=== PATIENT | male | born 1940 | race Caucasian/White ===

== ENCOUNTER 2019-05-27 18:02 | Inpatient (IN) ==
[2019-05-27] MEDS ORDERED: SODIUM CHLORIDE 0.9% 1,000 ML IV STA ×2 (18:36→21:39)
[2019-05-27] MEDS ORDERED: KETOROLAC 30 MG/1 ML VIAL IV STA (18:36)
[2019-05-27] MEDS ORDERED: ONDANSETRON 4 MG/2 ML VIAL IV STA (18:36)
[2019-05-27] MEDS ORDERED: LOPERAMIDE 2 MG CAPSULE PO STA (18:36)
[2019-05-27] MEDS ORDERED: METOCLOPRAMIDE 10 MG/2 ML VIAL IV STA (18:43)
[2019-05-27] MEDS ORDERED: DICYCLOMINE 20 MG/2 ML AMP IM ONE (18:43)
[2019-05-27] MEDS ORDERED: PANTOPRAZOLE 40 MG VIAL IV STA (18:43)
[2019-05-27] MEDS ORDERED: ALBUTEROL/IPRATROPIUM 3 ML NEB RESP TX STA (19:41)
[2019-05-27 19:43] LABS: Basophils % 0.3 % (0.0-0.8); Hematocrit 33.3 VOL% (42.0-52.0); Hemoglobin 10.6 GM/DL (14.0-18.0); Immature Granulocytes % 0.5 %; Immature Granulocytes Absolute 0.03 #; Lymphocytes # 0.3 10*3/uL (1.4-4.0); Lymphocytes % 4.5 % (21.2-54.2); Mean Corpuscular HGB Conc 31.8 GM/DL (32-36); Mean Corpuscular Volume 86.3 FL (87-102); Mean Platelet Volume 7.9 FL (9.6-12.0); Monocytes % 3.4 % (1.7-12.7); Neutrophils % 91.3 % (38.7-73.9); Platelet Count 319 T/CUMM (130-400); Red Blood Count 3.86 MC/CUMM (3.8-5.5); Red Cell Distribution Width 14.4 % (9.3-17.3); White Blood Count 5.8 T/CUMM (4-12)
[2019-05-27 20:03] LABS: Alanine Aminotransferase 14 U/L (16-61); Alkaline Phosphatase 67 U/L (45-117); Amylase 29 U/L (25-115); Aspartate Amino Transferase 20 U/L (0-37); Blood Urea Nitrogen 43 MG/DL (7-18); CKMB % 4.2 %; Estimated Glom Filtration Rate 61 ML/MIN; Glucose 90 MG/DL (74-106); Osmolality,Calculated 283.8 MOS/KG (273-304); Total Protein 5.6 G/DL (6.4-8.3); Troponin I < 0.015 NG/ML (0.00-0.045)
[2019-05-27 20:06] LABS: Band Neutrophils 1 % (0-10); Lymphocytes 4 % (20-55); Platelet Estimate Normal; Segmented Neutrophils 92 % (50-85); Total Cells Counted 100
[2019-05-27 20:07] LABS: Anisocytosis Slight; Hypochromasia Slight; Microcytosis Slight; Tear Drop Cells Slight
[2019-05-27] MEDS ORDERED: methylPREDNISolone SOD SUC 125 MG/2 ML VIAL IV STA (20:15)
[2019-05-27] MEDS ORDERED: cefTRIAXone 1,000 MG in SODIUM CHLORIDE 0.9% 100 ML IV STA (20:15)
[2019-05-27] MEDS ORDERED: AZITHROMYCIN INJ 500 MG in SODIUM CHLORIDE 0.9% 250 ML IV STA (20:15)
[2019-05-27 21:29] LABS: Apearance,Urine CLEAR (Clear); Bacteria,Urine Occasional /HPF (Few); Bilirubin,Urine Negative (Negative); Blood, Urine Negative (Negative); Glucose,Urine (UA) Negative (Negative); Ketones,Urine Negative (Negative); Mucus,Urine Occasional /LPF (Occasional); Nitrite,Urine Negative (Negative); Protein,Urine Negative; RBC,Urine <1 /HPF (0-4); Urine Color Yellow (Yellow); Urine Specific Gravity 1.025 (1.001-1.035); Urine Urobilinogen < 2.0 EU/DL (0.2-1.0)
[2019-05-28] MEDS ORDERED: ONDANSETRON 4 MG/2 ML VIAL IV PRN (00:02)
[2019-05-28] MEDS ORDERED: ALBUTEROL 1.25 MG/3 ML NEB RESP TX PRN (00:02)
[2019-05-28] MEDS ORDERED: ACETAMINOPHEN 325 MG TABLET PO PRN (00:02)
[2019-05-28] MEDS: SODIUM CHLORIDE 0.9% 1,000 ML IV SCH ×2 (00:45→08:38)
[2019-05-28 04:54] LABS: Basophils % 0.3 % (0.0-0.8); Hematocrit 27.6 VOL% (42.0-52.0); Hemoglobin 8.7 GM/DL (14.0-18.0); Immature Granulocytes % 0.5 %; Immature Granulocytes Absolute 0.04 #; Lymphocytes # 0.3 10*3/uL (1.4-4.0); Mean Corpuscular HGB Conc 31.5 GM/DL (32-36); Mean Corpuscular Volume 84.9 FL (87-102); Mean Platelet Volume 8.2 FL (9.6-12.0); Monocytes % 2.6 % (1.7-12.7); Neutrophils % 92.6 % (38.7-73.9); Platelet Count 284 T/CUMM (130-400); Red Blood Count 3.25 MC/CUMM (3.8-5.5); Red Cell Distribution Width 14.3 % (9.3-17.3); White Blood Count 7.3 T/CUMM (4-12)
[2019-05-28 05:14] LABS: Calcium 7.6 MG/DL (8.5-10.1); Osmolality,Calculated 284.7 MOS/KG (273-304)
[2019-05-28 05:22] LABS: Band Neutrophils 17 % (0-10); Hypochromasia Slight; Lymphocytes 4 % (20-55); Ovalocytes Slight; Platelet Estimate Adequate; Segmented Neutrophils 76 % (50-85); Total Cells Counted 100
[2019-05-28 05:23] LABS: Microcytosis Slight
[2019-05-28 05:26] LABS: Thyroid Stimulating Hormone 1.03 uIU/ml (0.358-3.74)
[2019-05-28] MEDS: MIDODRINE 5 MG TABLET PO SCH ×4 (08:34→20:22)
[2019-05-28] MEDS: PRAMIPEXOLE 1 MG TABLET PO SCH ×4 (08:34→20:22)
[2019-05-28] MEDS ORDERED: PANTOPRAZOLE 40 MG TABLET PO SCH (09:00)
[2019-05-28] MEDS: PANTOPRAZOLE 40 MG VIAL IV SCH (20:22)
[2019-05-28] MEDS: cefTRIAXone 1,000 MG in SYRINGE 1 EACH IV SCH (20:24)
[2019-05-28] MEDS: AZITHROMYCIN INJ 500 MG in SODIUM CHLORIDE 0.9% 250 ML IV SCH (20:30)
[2019-05-29] MEDS: ALBUTEROL 1.25 MG/3 ML NEB RESP TX SCH ×4 (00:22→19:56)
[2019-05-29 04:55] LABS: Hematocrit 26.9 VOL% (42.0-52.0); Hemoglobin 8.4 GM/DL (14.0-18.0); Immature Granulocytes % 0.8 %; Immature Granulocytes Absolute 0.05 #; Lymphocytes # 0.4 10*3/uL (1.4-4.0); Lymphocytes % 5.7 % (21.2-54.2); Mean Corpuscular HGB Conc 31.2 GM/DL (32-36); Mean Corpuscular Volume 85.4 FL (87-102); Mean Platelet Volume 8.2 FL (9.6-12.0); Monocytes % 5.3 % (1.7-12.7); Neutrophils % 88.2 % (38.7-73.9); Platelet Count 311 T/CUMM (130-400); Red Blood Count 3.15 MC/CUMM (3.8-5.5); Red Cell Distribution Width 14.8 % (9.3-17.3); White Blood Count 6.6 T/CUMM (4-12)
[2019-05-29 05:18] LABS: Band Neutrophils 3 % (0-10); Burr Cells Slight; Hypochromasia 1+; Lymphocytes 7 % (20-55); Microcytosis Slight; Ovalocytes Slight; Platelet Estimate Adequate; Segmented Neutrophils 89 % (50-85); Total Cells Counted 100
[2019-05-29 05:28] LABS: Calcium 7.8 MG/DL (8.5-10.1); Osmolality,Calculated 291.1 MOS/KG (273-304)
[2019-05-29] MEDS: PRAMIPEXOLE 1 MG TABLET PO SCH ×3 (09:38→20:23)
[2019-05-29] MEDS: MIDODRINE 5 MG TABLET PO SCH ×3 (09:38→20:23)
[2019-05-29] MEDS: PANTOPRAZOLE 40 MG VIAL IV SCH ×2 (09:40→20:19)
[2019-05-29] MEDS: POLYETHYLENE GLYCOL POWDER 17 GM PACK PO SCH ×2 (10:12→20:24)
[2019-05-29 10:42] LABS: % Iron Saturation 7.7 % (18-50)
[2019-05-29] MEDS: cefTRIAXone 1,000 MG in SYRINGE 1 EACH IV SCH (20:21)
[2019-05-29] MEDS: AZITHROMYCIN INJ 500 MG in SODIUM CHLORIDE 0.9% 250 ML IV SCH (20:24)
[2019-05-30] MEDS: ALBUTEROL 1.25 MG/3 ML NEB RESP TX SCH ×4 (00:55→20:06)
[2019-05-30 05:48] LABS: Basophils % 0.2 % (0.0-0.8); Eosinophils % 0.5 % (0.00-10.9); Hematocrit 25.5 VOL% (42.0-52.0); Immature Granulocytes % 0.7 %; Immature Granulocytes Absolute 0.04 #; Lymphocytes # 0.6 10*3/uL (1.4-4.0); Lymphocytes % 10.5 % (21.2-54.2); Mean Corpuscular HGB Conc 31.4 GM/DL (32-36); Mean Corpuscular Volume 84.7 FL (87-102); Monocytes % 7.3 % (1.7-12.7); Neutrophils % 80.8 % (38.7-73.9); Platelet Count 303 T/CUMM (130-400); Red Blood Count 3.01 MC/CUMM (3.8-5.5); Red Cell Distribution Width 14.8 % (9.3-17.3); White Blood Count 5.6 T/CUMM (4-12)
[2019-05-30 06:09] LABS: Band Neutrophils 1 % (0-10); Eosinophils 1 % (0-10); Hypochromasia 1+; Lymphocytes 7 % (20-55); Platelet Estimate Adequate; Segmented Neutrophils 86 % (50-85); Total Cells Counted 100
[2019-05-30 06:10] LABS: Microcytosis Slight
[2019-05-30] MEDS: LACTATED RINGERS 1,000 ML IV SCH (07:15)
[2019-05-30] MEDS ORDERED: ETOMIDATE 20 MG/10 ML VIAL IV ONE (09:00)
[2019-05-30] MEDS ORDERED: LIDOCAINE 2% 5 ML VIAL ONE (09:00)
[2019-05-30] MEDS ORDERED: propofoL 200 MG/20 ML VIAL IV ONE (09:00)
[2019-05-30] MEDS: PANTOPRAZOLE 40 MG VIAL IV SCH ×2 (09:12→20:53)
[2019-05-30] MEDS: PRAMIPEXOLE 1 MG TABLET PO SCH ×3 (10:43→20:40)
[2019-05-30] MEDS: POLYETHYLENE GLYCOL POWDER 17 GM PACK PO SCH ×2 (10:43→20:40)
[2019-05-30] MEDS: MIDODRINE 5 MG TABLET PO SCH ×3 (10:43→20:40)
[2019-05-30] MEDS: cefTRIAXone 1,000 MG in SYRINGE 1 EACH IV SCH (20:39)
[2019-05-31] MEDS: ALBUTEROL 1.25 MG/3 ML NEB RESP TX SCH ×4 (01:32→19:44)
[2019-05-31] MEDS: PRAMIPEXOLE 1 MG TABLET PO SCH ×3 (10:53→21:04)
[2019-05-31] MEDS: MIDODRINE 5 MG TABLET PO SCH ×3 (10:54→21:04)
[2019-05-31] MEDS: POLYETHYLENE GLYCOL POWDER 17 GM PACK PO SCH ×2 (10:54→21:05)
[2019-05-31] MEDS: PANTOPRAZOLE 40 MG VIAL IV SCH (10:54)
[2019-05-31] MEDS: AZITHROMYCIN 40 MG/ML 15 ML/BOTTLE PO SCH (15:40)
[2019-05-31] MEDS: PANTOPRAZOLE 40 MG TABLET PO SCH (18:15)
[2019-05-31] MEDS: cefTRIAXone 1,000 MG in SYRINGE 1 EACH IV SCH (21:03)
[2019-05-31] MEDS: LACTATED RINGERS 1,000 ML IV SCH (21:05)
[2019-06-01] MEDS: ALBUTEROL 1.25 MG/3 ML NEB RESP TX SCH ×4 (01:30→19:38)
[2019-06-01] MEDS: POLYETHYLENE GLYCOL POWDER 17 GM PACK PO SCH ×2 (09:56→21:25)
[2019-06-01] MEDS: AZITHROMYCIN 40 MG/ML 15 ML/BOTTLE PO SCH (09:56)
[2019-06-01] MEDS: MIDODRINE 5 MG TABLET PO SCH ×3 (09:57→21:25)
[2019-06-01] MEDS: PANTOPRAZOLE 40 MG TABLET PO SCH ×2 (09:58→18:47)
[2019-06-01] MEDS: PRAMIPEXOLE 1 MG TABLET PO SCH ×3 (09:58→21:25)
[2019-06-01 10:38] LABS: Basophils % 0.3 % (0.0-0.8); Eosinophils # 0.1 10*3/uL (0.0-0.87); Eosinophils % 1.6 % (0.00-10.9); Hematocrit 27.7 VOL% (42.0-52.0); Hemoglobin 8.8 GM/DL (14.0-18.0); Immature Granulocytes % 1.2 %; Immature Granulocytes Absolute 0.08 #; Lymphocytes # 0.6 10*3/uL (1.4-4.0); Lymphocytes % 9.8 % (21.2-54.2); Mean Corpuscular HGB Conc 31.8 GM/DL (32-36); Mean Corpuscular Volume 84.5 FL (87-102); Mean Platelet Volume 8.2 FL (9.6-12.0); Monocytes % 9.3 % (1.7-12.7); Neutrophils % 77.8 % (38.7-73.9); Platelet Count 271 T/CUMM (130-400); Red Blood Count 3.28 MC/CUMM (3.8-5.5); Red Cell Distribution Width 14.7 % (9.3-17.3); White Blood Count 6.4 T/CUMM (4-12)
[2019-06-01 10:59] LABS: Atypical Lymphocytes Few; Band Neutrophils 2 % (0-10); Eosinophils 3 % (0-10); Hypochromasia 1+; Lymphocytes 8 % (20-55); Segmented Neutrophils 76 % (50-85); Total Cells Counted 100
[2019-06-01 11:00] LABS: Microcytosis Slight; Ovalocytes Slight; Polychromasia Slight
[2019-06-01] MEDS: LACTATED RINGERS 1,000 ML IV SCH (19:43)
[2019-06-01] MEDS: cefTRIAXone 1,000 MG in SYRINGE 1 EACH IV SCH (21:24)
[2019-06-02] MEDS: ALBUTEROL 1.25 MG/3 ML NEB RESP TX SCH ×4 (00:39→20:20)
[2019-06-02] MEDS: LACTATED RINGERS 1,000 ML IV SCH (09:16)
[2019-06-02] MEDS: PANTOPRAZOLE 40 MG TABLET PO SCH ×2 (15:25→21:29)
[2019-06-02] MEDS: PRAMIPEXOLE 1 MG TABLET PO SCH ×3 (15:25→21:24)
[2019-06-02] MEDS: POLYETHYLENE GLYCOL POWDER 17 GM PACK PO SCH ×2 (15:25→22:55)
[2019-06-02] MEDS: MIDODRINE 5 MG TABLET PO SCH ×3 (15:31→21:25)
[2019-06-02] MEDS: AZITHROMYCIN 40 MG/ML 15 ML/BOTTLE PO SCH (15:36)
[2019-06-02] MEDS: cefTRIAXone 1,000 MG in SYRINGE 1 EACH IV SCH (21:23)
[2019-06-03] MEDS: ALBUTEROL 1.25 MG/3 ML NEB RESP TX SCH ×2 (00:57→07:22)
[2019-06-03 05:50] LABS: Calcium 7.9 MG/DL (8.5-10.1); Osmolality,Calculated 272.8 MOS/KG (273-304)
[2019-06-03] MEDS: PANTOPRAZOLE 40 MG TABLET PO SCH (10:13)
[2019-06-03] MEDS: PRAMIPEXOLE 1 MG TABLET PO SCH (10:13)
[2019-06-03] MEDS: MIDODRINE 5 MG TABLET PO SCH (10:13)
[2019-06-03] MEDS: POLYETHYLENE GLYCOL POWDER 17 GM PACK PO SCH (10:14)
[2019-06-03] MEDS: AZITHROMYCIN 40 MG/ML 15 ML/BOTTLE PO SCH (13:38)
[2019-06-03 20:50] VITALS: BP 114/70
[2019-06-04] MEDS ORDERED: FLUCONAZOLE 100 MG TABLET PO SCH (09:00)
== END 2019-06-03 14:40 | disposition home or self-care (01) | DRG 177 ==
LOC: N.ED 18:02 → N.EDINP 23:22 → SUATTDRO 23:22 → N.EDINP 05-28 00:19 → N.5E 05-28 00:20
PROVIDERS: ADMIT Internal Medicine; ATTEND Emergency Medicine

== ENCOUNTER 2020-06-21 09:29 | Inpatient (IN) ==
[2020-06-22 00:13] LABS: Basophils % 0.7 % (0.0-0.8); Eosinophils # 0.1 10*3/uL (0.0-0.87); Eosinophils % 1.4 % (0.00-10.9); Hematocrit 36.4 VOL% (42.0-52.0); Hemoglobin 11.4 GM/DL (14.0-18.0); Immature Granulocytes % 0.5 %; Immature Granulocytes Absolute 0.03 #; Lymphocytes # 0.4 10*3/uL (1.4-4.0); Lymphocytes % 7.2 % (21.2-54.2); Mean Corpuscular HGB Conc 31.3 GM/DL (32-36); Mean Corpuscular Volume 91.2 FL (87-102); Mean Platelet Volume 9.3 FL (9.6-12.0); Monocytes % 8.7 % (1.7-12.7); Neutrophils % 81.5 % (38.7-73.9); Platelet Count 216 T/CUMM (130-400); Red Blood Count 3.99 MC/CUMM (3.8-5.5); Red Cell Distribution Width 16.7 % (9.3-17.3); White Blood Count 5.5 T/CUMM (4-12)
[2020-06-22 00:21] LABS: Partial Thromboplastin Time 32.2 SECS (23.9-33.8)
[2020-06-22 00:28] LABS: Allen Test Positive; Pt O2 Delivery Device CPAP
[2020-06-22 00:30] LABS: ABG Base Excess 1.5 MMOL/L (-2.5-2.5); ABG HCO3 25.7 MMOL/L (20-26); ABG PCO2 54.1 MM HG (35-48); ABG PH 7.331 (7.35-7.45); ABG TCO2 25.3 MMOL/L (23-27)
[2020-06-22] MEDS ORDERED: ALBUTEROL/IPRATROPIUM 3 ML NEB RESP TX PRN (00:47)
[2020-06-22] MEDS ORDERED: ACETAMINOPHEN 325 MG TABLET PO PRN (00:51)
[2020-06-22] MEDS ORDERED: ALBUTEROL 2.5 MG/3 ML NEB RESP TX PRN (00:51)
[2020-06-22 01:25] LABS: Alanine Aminotransferase < 9 U/L (16-61); Alkaline Phosphatase 84 U/L (45-117); Aspartate Amino Transferase 19 U/L (0-37); Blood Urea Nitrogen 16 MG/DL (7-18); Calcium 8.7 MG/DL (8.5-10.1); Carbon Dioxide 25 MMOL/L (21-32); Estimated Glom Filtration Rate 77 ML/MIN; Glucose 68 MG/DL (74-106); Osmolality,Calculated 284.8 MOS/KG (273-304); Potassium 3.8 MMOL/L (3.5-5.1); Sodium 144 MMOL/L (136-145)
[2020-06-22] MEDS: cefTRIAXone 1,000 MG in SYRINGE 1 EACH IV SCH (01:48)
[2020-06-22] MEDS: SODIUM CHLORIDE 0.45% 1,000 ML IV SCH ×2 (01:48→17:33)
[2020-06-22] MEDS: AZITHROMYCIN INJ 500 MG in SODIUM CHLORIDE 0.9% 250 ML IV SCH (01:49)
[2020-06-22] MEDS: methylPREDNISolone SOD SUC 40 MG/1 ML VIAL IV SCH ×3 (01:52→17:33)
[2020-06-22] MEDS: ALBUTEROL/IPRATROPIUM 3 ML NEB RESP TX SCH ×5 (02:07→19:46)
[2020-06-22 02:35] LABS: Bilirubin,Urine Negative (Negative); Blood, Urine Moderate mg/dL (Negative); Glucose,Urine (UA) Negative (Negative); Hyaline Casts,Urine 9 /LPF (0-3); Ketones,Urine 5 mg/dL (Negative); Mucus,Urine Occasional /LPF (Occasional); Nitrite,Urine Negative (Negative); Protein,Urine Negative; RBC,Urine 18 /HPF (0-4); Urine Appearance CLEAR (Clear); Urine Color Yellow (Yellow); Urine Specific Gravity 1.011 (1.001-1.035); Urine Urobilinogen < 2.0 EU/DL (0.2-1.0)
[2020-06-22 04:06] LABS: ABG Base Excess -0.1 MMOL/L (-2.5-2.5); ABG HCO3 24.3 MMOL/L (20-26); ABG Oxygen Saturation 97.4 % (95-100); ABG PCO2 57.4 MM HG (35-48); ABG PH 7.289 (7.35-7.45); ABG TCO2 25.2 MMOL/L (23-27); Allen Test Positive; Pt O2 Delivery Device CPAP
[2020-06-22 04:48] LABS: Basophils % 0.6 % (0.0-0.8); Eosinophils % 0.6 % (0.00-10.9); Hematocrit 37.3 VOL% (42.0-52.0); Hemoglobin 11.2 GM/DL (14.0-18.0); Immature Granulocytes % 0.7 %; Immature Granulocytes Absolute 0.05 #; Lymphocytes # 0.3 10*3/uL (1.4-4.0); Lymphocytes % 4.3 % (21.2-54.2); Mean Corpuscular Volume 94.2 FL (87-102); Mean Platelet Volume 9.4 FL (9.6-12.0); Monocytes % 6.1 % (1.7-12.7); Neutrophils % 87.7 % (38.7-73.9); Platelet Count 236 T/CUMM (130-400); Red Blood Count 3.96 MC/CUMM (3.8-5.5); Red Cell Distribution Width 16.7 % (9.3-17.3); White Blood Count 7.3 T/CUMM (4-12)
[2020-06-22 04:52] LABS: Calcium 8.2 MG/DL (8.5-10.1); Osmolality,Calculated 289.6 MOS/KG (273-304); Potassium 4.1 MMOL/L (3.5-5.1)
[2020-06-22 05:26] LABS: Band Neutrophils 15 % (0-10); Lymphocytes 3 % (20-55); Segmented Neutrophils 75 % (50-85); Total Cells Counted 100
[2020-06-22 05:27] LABS: Anisocytosis 1+; Burr Cells Few; Macrocytosis Slight; Platelet Estimate Normal
[2020-06-22] MEDS ORDERED: DEXTROSE 50% 25 GM/50 ML VIAL IV ONE (06:29)
[2020-06-22] MEDS ORDERED: DEXTROSE 50% 25 GM/50 ML VIAL IV PRN (06:32)
[2020-06-22] MEDS: BUDESONIDE 0.5 MG/2 ML NEB RESP TX SCH ×2 (07:40→19:46)
[2020-06-22] MEDS ORDERED: QUEtiapine 25 MG TABLET PO SCH (09:00)
[2020-06-22] MEDS: ENOXAPARIN 40 MG/0.4 ML SYRINGE SUBCUT SCH (10:54)
[2020-06-22] MEDS: MIDODRINE 5 MG TABLET PO SCH ×3 (10:54→21:28)
[2020-06-22] MEDS: CARBIDOPA/LEVODOPA 25-100 MG TABLET PO SCH ×2 (10:54→21:28)
[2020-06-22] MEDS: PRAMIPEXOLE 0.25 MG TABLET PO SCH ×2 (10:54→17:13)
[2020-06-22] MEDS: DESITIN 4OZ/NYSTATIN 15 GRAM MIXTURE PASTE TOP SCH ×2 (10:54→21:30)
[2020-06-22] MEDS: PANTOPRAZOLE 40 MG TABLET PO SCH (10:54)
[2020-06-22] MEDS ORDERED: FUROSEMIDE 40 MG/4 ML VIAL IV ONE (13:08)
[2020-06-22] MEDS: MIRTAZAPINE 15 MG TABLET PO SCH (21:28)
[2020-06-22] MEDS: QUEtiapine 25 MG TABLET PO SCH (21:28)
[2020-06-23] MEDS: ALBUTEROL/IPRATROPIUM 3 ML NEB RESP TX SCH ×7 (00:20→23:48)
[2020-06-23] MEDS: cefTRIAXone 1,000 MG in SYRINGE 1 EACH IV SCH (01:20)
[2020-06-23] MEDS: PRAMIPEXOLE 0.25 MG TABLET PO SCH ×3 (01:33→17:11)
[2020-06-23] MEDS: methylPREDNISolone SOD SUC 40 MG/1 ML VIAL IV SCH ×3 (01:57→17:11)
[2020-06-23] MEDS: AZITHROMYCIN INJ 500 MG in SODIUM CHLORIDE 0.9% 250 ML IV SCH (02:00)
[2020-06-23 05:54] LABS: Hemoglobin 11.3 GM/DL (14.0-18.0); Immature Granulocytes % 0.8 %; Immature Granulocytes Absolute 0.06 #; Lymphocytes # 0.4 10*3/uL (1.4-4.0); Lymphocytes % 4.5 % (21.2-54.2); Mean Corpuscular HGB Conc 31.4 GM/DL (32-36); Mean Corpuscular Volume 91.1 FL (87-102); Mean Platelet Volume 9.4 FL (9.6-12.0); Neutrophils % 90.7 % (38.7-73.9); Platelet Count 341 T/CUMM (130-400); Red Blood Count 3.95 MC/CUMM (3.8-5.5); Red Cell Distribution Width 16.7 % (9.3-17.3)
[2020-06-23 06:11] LABS: Albumin 2.2 G/DL (3.4-5.0); Bilirubin,Total 0.6 MG/DL (0.2-1.0); Calcium 9.2 MG/DL (8.5-10.1); Osmolality,Calculated 290.8 MOS/KG (273-304); Potassium 3.9 MMOL/L (3.5-5.1); Total Protein 7.3 G/DL (6.4-8.3)
[2020-06-23 06:32] LABS: Anisocytosis 1+; Band Neutrophils 10 % (0-10); Lymphocytes 5 % (20-55); Platelet Estimate Normal; Segmented Neutrophils 83 % (50-85); Total Cells Counted 100
[2020-06-23 06:33] LABS: Macrocytosis Slight
[2020-06-23] MEDS: BUDESONIDE 0.5 MG/2 ML NEB RESP TX SCH ×2 (07:20→18:58)
[2020-06-23] MEDS: DESITIN 4OZ/NYSTATIN 15 GRAM MIXTURE PASTE TOP SCH ×2 (09:11→20:58)
[2020-06-23] MEDS: ENOXAPARIN 40 MG/0.4 ML SYRINGE SUBCUT SCH (09:11)
[2020-06-23] MEDS: CARBIDOPA/LEVODOPA 25-100 MG TABLET PO SCH ×2 (09:16→20:57)
[2020-06-23] MEDS: PANTOPRAZOLE 40 MG TABLET PO SCH (09:17)
[2020-06-23] MEDS: QUEtiapine 25 MG TABLET PO SCH ×2 (09:17→20:57)
[2020-06-23] MEDS: MIDODRINE 5 MG TABLET PO SCH ×3 (09:17→20:57)
[2020-06-23] MEDS ORDERED: NICOTINE 21 MG/24 HR PATCH TRANSDERM PRN (15:22)
[2020-06-23 16:29] LABS: CKMB % 14.2 %
[2020-06-23 16:30] LABS: Troponin I 0.065 NG/ML (0.00-0.045)
[2020-06-23] MEDS: PIPERACILLIN/TAZOBACTAM 3,375 MG in SODIUM CHLORIDE 0.9% 100 ML IV SCH (17:12)
[2020-06-23] MEDS: MIRTAZAPINE 15 MG TABLET PO SCH (20:57)
[2020-06-23] MEDS ORDERED: diphenhydrAMINE 50 MG/1 ML VIAL IV ONE (21:57)
[2020-06-23] MEDS: SODIUM CHLORIDE 0.45% 1,000 ML IV SCH (22:31)
[2020-06-24] MEDS: PRAMIPEXOLE 0.25 MG TABLET PO SCH ×3 (00:35→17:27)
[2020-06-24] MEDS: PIPERACILLIN/TAZOBACTAM 3,375 MG in SODIUM CHLORIDE 0.9% 100 ML IV SCH ×3 (01:07→17:25)
[2020-06-24] MEDS: methylPREDNISolone SOD SUC 40 MG/1 ML VIAL IV SCH ×3 (01:08→17:25)
[2020-06-24] MEDS: ALBUTEROL/IPRATROPIUM 3 ML NEB RESP TX SCH ×6 (03:01→23:50)
[2020-06-24 04:11] LABS: ABG Base Excess 1.6 MMOL/L (-2.5-2.5); ABG HCO3 25.4 MMOL/L (20-26); ABG Oxygen Saturation 78.2 % (95-100); ABG PCO2 31.8 MM HG (35-48); ABG PH 7.491 (7.35-7.45); ABG PO2 44.7 MM HG (80-95); ABG TCO2 21.6 MMOL/L (23-27); Allen Test Positive; Pt O2 Delivery Device Room Air
[2020-06-24] MEDS: SODIUM CHLORIDE 0.45% 1,000 ML IV SCH (04:15)
[2020-06-24 06:29] LABS: Basophils % 0.2 % (0.0-0.8); Hemoglobin 11.7 GM/DL (14.0-18.0); Immature Granulocytes % 0.5 %; Immature Granulocytes Absolute 0.03 #; Lymphocytes # 0.4 10*3/uL (1.4-4.0); Lymphocytes % 6.1 % (21.2-54.2); Mean Corpuscular HGB Conc 31.6 GM/DL (32-36); Mean Corpuscular Volume 89.8 FL (87-102); Mean Platelet Volume 9.7 FL (9.6-12.0); Monocytes % 5.2 % (1.7-12.7); Platelet Count 358 T/CUMM (130-400); Red Blood Count 4.12 MC/CUMM (3.8-5.5); Red Cell Distribution Width 16.9 % (9.3-17.3); White Blood Count 6.5 T/CUMM (4-12)
[2020-06-24 07:06] LABS: Calcium 9.5 MG/DL (8.5-10.1); Osmolality,Calculated 295.7 MOS/KG (273-304); Potassium 3.6 MMOL/L (3.5-5.1)
[2020-06-24] MEDS: BUDESONIDE 0.5 MG/2 ML NEB RESP TX SCH ×2 (07:07→19:02)
[2020-06-24 07:11] LABS: CKMB % 13.3 %
[2020-06-24 07:14] LABS: Troponin I 0.058 NG/ML (0.00-0.045)
[2020-06-24] MEDS: ENOXAPARIN 40 MG/0.4 ML SYRINGE SUBCUT SCH (09:46)
[2020-06-24] MEDS: MIDODRINE 5 MG TABLET PO SCH ×3 (09:46→20:07)
[2020-06-24] MEDS: QUEtiapine 25 MG TABLET PO SCH ×2 (09:46→20:07)
[2020-06-24] MEDS: PANTOPRAZOLE 40 MG TABLET PO SCH (09:46)
[2020-06-24] MEDS: CARBIDOPA/LEVODOPA 25-100 MG TABLET PO SCH ×2 (09:47→20:07)
[2020-06-24] MEDS: DESITIN 4OZ/NYSTATIN 15 GRAM MIXTURE PASTE TOP SCH ×2 (09:57→21:51)
[2020-06-24] MEDS ORDERED: ZALEPLON 5 MG CAPSULE PO PRN (19:09)
[2020-06-24] MEDS: AZITHROMYCIN INJ 500 MG in SODIUM CHLORIDE 0.9% 250 ML IV SCH (20:07)
[2020-06-24] MEDS: MIRTAZAPINE 15 MG TABLET PO SCH (20:07)
[2020-06-25] MEDS: PIPERACILLIN/TAZOBACTAM 3,375 MG in SODIUM CHLORIDE 0.9% 100 ML IV SCH ×3 (00:34→18:14)
[2020-06-25] MEDS: methylPREDNISolone SOD SUC 40 MG/1 ML VIAL IV SCH ×3 (00:58→18:13)
[2020-06-25] MEDS: PRAMIPEXOLE 0.25 MG TABLET PO SCH ×3 (02:37→18:13)
[2020-06-25] MEDS: SODIUM CHLORIDE 0.45% 1,000 ML IV SCH (03:46)
[2020-06-25] MEDS: ALBUTEROL/IPRATROPIUM 3 ML NEB RESP TX SCH ×5 (03:53→19:42)
[2020-06-25 06:50] LABS: Basophils % 0.1 % (0.0-0.8); Hematocrit 37.8 VOL% (42.0-52.0); Hemoglobin 11.9 GM/DL (14.0-18.0); Immature Granulocytes % 0.6 %; Immature Granulocytes Absolute 0.06 #; Lymphocytes # 0.3 10*3/uL (1.4-4.0); Lymphocytes % 2.7 % (21.2-54.2); Mean Corpuscular HGB Conc 31.5 GM/DL (32-36); Mean Corpuscular Volume 90.2 FL (87-102); Mean Platelet Volume 9.5 FL (9.6-12.0); Monocytes % 13.3 % (1.7-12.7); Neutrophils % 83.3 % (38.7-73.9); Platelet Count 318 T/CUMM (130-400); Red Blood Count 4.19 MC/CUMM (3.8-5.5); Red Cell Distribution Width 17.2 % (9.3-17.3); White Blood Count 10.2 T/CUMM (4-12)
[2020-06-25 07:02] LABS: Calcium 8.8 MG/DL (8.5-10.1); Osmolality,Calculated 303.3 MOS/KG (273-304); Potassium 3.6 MMOL/L (3.5-5.1)
[2020-06-25 07:11] LABS: Hypochromasia 1+; Lymphocytes 4 % (20-55); Microcytosis 1+; Ovalocytes Slight; Platelet Estimate Adequate; Segmented Neutrophils 85 % (50-85); Total Cells Counted 100
[2020-06-25] MEDS: BUDESONIDE 0.5 MG/2 ML NEB RESP TX SCH ×2 (07:27→19:42)
[2020-06-25] MEDS ORDERED: FUROSEMIDE 40 MG/4 ML VIAL IV ONE (09:57)
[2020-06-25] MEDS: ENOXAPARIN 40 MG/0.4 ML SYRINGE SUBCUT SCH (10:35)
[2020-06-25] MEDS: MIDODRINE 5 MG TABLET PO SCH ×3 (10:35→21:47)
[2020-06-25] MEDS: QUEtiapine 25 MG TABLET PO SCH ×2 (10:36→21:47)
[2020-06-25] MEDS: PANTOPRAZOLE 40 MG TABLET PO SCH (10:36)
[2020-06-25] MEDS: CARBIDOPA/LEVODOPA 25-100 MG TABLET PO SCH ×2 (10:37→21:47)
[2020-06-25] MEDS: DESITIN 4OZ/NYSTATIN 15 GRAM MIXTURE PASTE TOP SCH ×2 (10:38→21:48)
[2020-06-25] MEDS: MIRTAZAPINE 15 MG TABLET PO SCH (21:47)
[2020-06-25] MEDS: AZITHROMYCIN INJ 500 MG in SODIUM CHLORIDE 0.9% 250 ML IV SCH (21:49)
[2020-06-26] MEDS: ALBUTEROL/IPRATROPIUM 3 ML NEB RESP TX SCH ×6 (00:40→19:48)
[2020-06-26] MEDS: methylPREDNISolone SOD SUC 40 MG/1 ML VIAL IV SCH ×3 (02:09→18:00)
[2020-06-26] MEDS: PIPERACILLIN/TAZOBACTAM 3,375 MG in SODIUM CHLORIDE 0.9% 100 ML IV SCH ×3 (02:13→18:20)
[2020-06-26] MEDS: PRAMIPEXOLE 0.25 MG TABLET PO SCH ×3 (02:23→18:19)
[2020-06-26] MEDS: BUDESONIDE 0.5 MG/2 ML NEB RESP TX SCH ×2 (07:38→19:48)
[2020-06-26] MEDS: DESITIN 4OZ/NYSTATIN 15 GRAM MIXTURE PASTE TOP SCH ×2 (10:18→22:00)
[2020-06-26] MEDS: ENOXAPARIN 40 MG/0.4 ML SYRINGE SUBCUT SCH (11:30)
[2020-06-26] MEDS: QUEtiapine 25 MG TABLET PO SCH (11:31)
[2020-06-26] MEDS: CARBIDOPA/LEVODOPA 25-100 MG TABLET PO SCH (11:31)
[2020-06-26] MEDS: PANTOPRAZOLE 40 MG TABLET PO SCH (11:31)
[2020-06-26] MEDS: MIDODRINE 5 MG TABLET PO SCH ×2 (11:31→18:19)
[2020-06-26] MEDS: NICOTINE 21 MG/24 HR PATCH TRANSDERM SCH ×2 (11:56→18:19)
[2020-06-26] MEDS: LORazepam 2 MG/1 ML VIAL IV PRN (16:20)
[2020-06-26] MEDS: SODIUM CHLORIDE 0.45% 1,000 ML IV SCH (18:18)
[2020-06-26] MEDS: AZITHROMYCIN INJ 500 MG in SODIUM CHLORIDE 0.9% 250 ML IV SCH (21:03)
[2020-06-27] MEDS: MIDODRINE 5 MG TABLET PO SCH ×4 (00:20→20:13)
[2020-06-27] MEDS: CARBIDOPA/LEVODOPA 25-100 MG TABLET PO SCH ×3 (00:20→20:13)
[2020-06-27] MEDS: QUEtiapine 25 MG TABLET PO SCH ×3 (00:20→20:13)
[2020-06-27] MEDS: MIRTAZAPINE 15 MG TABLET PO SCH ×2 (00:20→20:13)
[2020-06-27] MEDS: ALBUTEROL/IPRATROPIUM 3 ML NEB RESP TX SCH ×8 (00:35→23:47)
[2020-06-27] MEDS: methylPREDNISolone SOD SUC 40 MG/1 ML VIAL IV SCH ×3 (01:18→23:06)
[2020-06-27] MEDS: PRAMIPEXOLE 0.25 MG TABLET PO SCH ×3 (01:18→16:16)
[2020-06-27] MEDS: PIPERACILLIN/TAZOBACTAM 3,375 MG in SODIUM CHLORIDE 0.9% 100 ML IV SCH ×3 (01:22→16:55)
[2020-06-27] MEDS: BUDESONIDE 0.5 MG/2 ML NEB RESP TX SCH ×2 (07:34→19:12)
[2020-06-27] MEDS: PANTOPRAZOLE 40 MG TABLET PO SCH (09:44)
[2020-06-27] MEDS: ENOXAPARIN 40 MG/0.4 ML SYRINGE SUBCUT SCH (09:45)
[2020-06-27] MEDS: DESITIN 4OZ/NYSTATIN 15 GRAM MIXTURE PASTE TOP SCH ×2 (09:45→20:13)
[2020-06-27] MEDS: NICOTINE 21 MG/24 HR PATCH TRANSDERM SCH (09:49)
[2020-06-27] MEDS ORDERED: FUROSEMIDE 40 MG/4 ML VIAL IV ONE (10:09)
[2020-06-27] MEDS: LORazepam 2 MG/1 ML VIAL IV PRN (14:12)
[2020-06-27] MEDS ORDERED: LORazepam 2 MG/1 ML VIAL IV PRN (17:02)
[2020-06-27] MEDS ORDERED: LORazepam 2 MG/1 ML VIAL ONE (17:03)
[2020-06-27] MEDS: SODIUM CHLORIDE 0.45% 1,000 ML IV SCH (17:12)
[2020-06-28] MEDS: PRAMIPEXOLE 0.25 MG TABLET PO SCH ×3 (01:43→18:23)
[2020-06-28] MEDS: PIPERACILLIN/TAZOBACTAM 3,375 MG in SODIUM CHLORIDE 0.9% 100 ML IV SCH ×3 (01:44→17:33)
[2020-06-28] MEDS: ALBUTEROL/IPRATROPIUM 3 ML NEB RESP TX SCH ×6 (02:48→23:45)
[2020-06-28] MEDS: BUDESONIDE 0.5 MG/2 ML NEB RESP TX SCH ×2 (07:30→20:12)
[2020-06-28] MEDS: PANTOPRAZOLE 40 MG VIAL IV SCH ×2 (09:24→23:10)
[2020-06-28] MEDS: methylPREDNISolone SOD SUC 40 MG/1 ML VIAL IV SCH (09:25)
[2020-06-28] MEDS: ENOXAPARIN 40 MG/0.4 ML SYRINGE SUBCUT SCH (09:26)
[2020-06-28] MEDS: NICOTINE 21 MG/24 HR PATCH TRANSDERM SCH (09:26)
[2020-06-28] MEDS: MIDODRINE 5 MG TABLET PO SCH ×3 (09:27→23:11)
[2020-06-28] MEDS: QUEtiapine 25 MG TABLET PO SCH ×2 (09:27→23:11)
[2020-06-28] MEDS: CARBIDOPA/LEVODOPA 25-100 MG TABLET PO SCH ×2 (09:28→23:11)
[2020-06-28] MEDS: DESITIN 4OZ/NYSTATIN 15 GRAM MIXTURE PASTE TOP SCH ×2 (09:28→23:11)
[2020-06-28] MEDS ORDERED: FUROSEMIDE 40 MG/4 ML VIAL IV ONE (15:00)
[2020-06-28] MEDS: MIRTAZAPINE 15 MG TABLET PO SCH (23:11)
[2020-06-29] MEDS: PIPERACILLIN/TAZOBACTAM 3,375 MG in SODIUM CHLORIDE 0.9% 100 ML IV SCH ×3 (01:15→16:50)
[2020-06-29] MEDS: PRAMIPEXOLE 0.25 MG TABLET PO SCH ×3 (01:15→16:49)
[2020-06-29] MEDS: ALBUTEROL/IPRATROPIUM 3 ML NEB RESP TX SCH ×6 (04:34→23:50)
[2020-06-29 07:14] LABS: Basophils % 0.2 % (0.0-0.8); Eosinophils % 0.2 % (0.00-10.9); Hematocrit 42.7 VOL% (42.0-52.0); Hemoglobin 13.1 GM/DL (14.0-18.0); Immature Granulocytes % 0.5 %; Immature Granulocytes Absolute 0.03 #; Lymphocytes # 0.4 10*3/uL (1.4-4.0); Lymphocytes % 5.9 % (21.2-54.2); Mean Corpuscular HGB Conc 30.7 GM/DL (32-36); Mean Corpuscular Volume 93.2 FL (87-102); Mean Platelet Volume 9.5 FL (9.6-12.0); Monocytes % 7.7 % (1.7-12.7); Neutrophils % 85.5 % (38.7-73.9); Platelet Count 197 T/CUMM (130-400); Red Blood Count 4.58 MC/CUMM (3.8-5.5); Red Cell Distribution Width 16.6 % (9.3-17.3); White Blood Count 6.6 T/CUMM (4-12)
[2020-06-29] MEDS: BUDESONIDE 0.5 MG/2 ML NEB RESP TX SCH ×2 (07:20→19:06)
[2020-06-29 07:25] LABS: Calcium 8.8 MG/DL (8.5-10.1); Osmolality,Calculated 310.6 MOS/KG (273-304); Potassium 3.6 MMOL/L (3.5-5.1)
[2020-06-29 08:31] LABS: Hypochromasia 1+; Microcytosis 1+
[2020-06-29 08:32] LABS: Ovalocytes Slight
[2020-06-29 08:33] LABS: Platelet Estimate Adequate
[2020-06-29] MEDS: QUEtiapine 25 MG TABLET PO SCH ×2 (09:15→20:39)
[2020-06-29] MEDS: DESITIN 4OZ/NYSTATIN 15 GRAM MIXTURE PASTE TOP SCH ×2 (09:15→20:39)
[2020-06-29] MEDS: predniSONE 20 MG TABLET PO SCH (09:15)
[2020-06-29] MEDS: CARBIDOPA/LEVODOPA 25-100 MG TABLET PO SCH ×2 (09:15→20:39)
[2020-06-29] MEDS: MIDODRINE 5 MG TABLET PO SCH ×3 (09:15→20:38)
[2020-06-29] MEDS: ENOXAPARIN 40 MG/0.4 ML SYRINGE SUBCUT SCH (10:27)
[2020-06-29] MEDS: PANTOPRAZOLE 40 MG VIAL IV SCH ×2 (10:27→20:39)
[2020-06-29] MEDS: NICOTINE 21 MG/24 HR PATCH TRANSDERM SCH (10:27)
[2020-06-30] MEDS: PRAMIPEXOLE 0.25 MG TABLET PO SCH ×3 (00:26→16:18)
[2020-06-30] MEDS: PIPERACILLIN/TAZOBACTAM 3,375 MG in SODIUM CHLORIDE 0.9% 100 ML IV SCH ×3 (00:44→16:27)
[2020-06-30] MEDS: ALBUTEROL/IPRATROPIUM 3 ML NEB RESP TX SCH ×5 (03:05→19:51)
[2020-06-30 06:56] LABS: Basophils % 0.1 % (0.0-0.8); Eosinophils % 0.1 % (0.00-10.9); Hematocrit 40.7 VOL% (42.0-52.0); Hemoglobin 12.7 GM/DL (14.0-18.0); Immature Granulocytes % 0.3 %; Immature Granulocytes Absolute 0.03 #; Lymphocytes # 0.3 10*3/uL (1.4-4.0); Mean Corpuscular HGB Conc 31.2 GM/DL (32-36); Mean Corpuscular Volume 92.3 FL (87-102); Mean Platelet Volume 9.7 FL (9.6-12.0); Monocytes % 5.9 % (1.7-12.7); Neutrophils % 90.6 % (38.7-73.9); Platelet Count 209 T/CUMM (130-400); Red Blood Count 4.41 MC/CUMM (3.8-5.5); Red Cell Distribution Width 16.3 % (9.3-17.3); White Blood Count 9.2 T/CUMM (4-12)
[2020-06-30] MEDS ORDERED: DEXTROSE 5% NACL 0.45% 1,000 ML IV SCH ×2 (07:00→07:30)
[2020-06-30] MEDS: DEXTROSE 5% 1,000 ML IV SCH ×3 (07:02→09:46)
[2020-06-30 07:17] LABS: Calcium 9.2 MG/DL (8.5-10.1); Osmolality,Calculated 306.7 MOS/KG (273-304)
[2020-06-30 07:21] LABS: Hypochromasia 1+; Lymphocytes 4 % (20-55); Microcytosis 1+; Platelet Estimate Adequate; Segmented Neutrophils 88 % (50-85); Total Cells Counted 100
[2020-06-30] MEDS: PANTOPRAZOLE 40 MG VIAL IV SCH ×2 (08:19→21:42)
[2020-06-30] MEDS: ENOXAPARIN 40 MG/0.4 ML SYRINGE SUBCUT SCH (08:19)
[2020-06-30] MEDS: NICOTINE 21 MG/24 HR PATCH TRANSDERM SCH (08:19)
[2020-06-30] MEDS: predniSONE 20 MG TABLET PO SCH (08:20)
[2020-06-30] MEDS: CARBIDOPA/LEVODOPA 25-100 MG TABLET PO SCH ×2 (08:20→21:31)
[2020-06-30] MEDS: QUEtiapine 25 MG TABLET PO SCH ×2 (08:20→21:30)
[2020-06-30] MEDS: MIDODRINE 5 MG TABLET PO SCH ×3 (08:20→21:31)
[2020-06-30] MEDS: BUDESONIDE 0.5 MG/2 ML NEB RESP TX SCH (08:36)
[2020-06-30] MEDS: DESITIN 4OZ/NYSTATIN 15 GRAM MIXTURE PASTE TOP SCH ×2 (09:46→21:42)
[2020-06-30] MEDS: DEXT 5% NACL 0.45% KCL 10 MEQ 10 MEQ/1,000 ML BAG IV SCH (09:46)
[2020-06-30] MEDS ORDERED: POTASSIUM CHLORIDE 20 MEQ TABLET PO ONE (12:00)
[2020-06-30] MEDS ORDERED: TUBERCULIN SKIN TEST 0.1 ML SYRINGE INTRADERM ONE (17:00)
[2020-07-01] MEDS: ALBUTEROL/IPRATROPIUM 3 ML NEB RESP TX SCH ×6 (00:30→19:33)
[2020-07-01] MEDS: BUDESONIDE 0.5 MG/2 ML NEB RESP TX SCH ×3 (00:30→19:33)
[2020-07-01] MEDS: PRAMIPEXOLE 0.25 MG TABLET PO SCH ×2 (02:11→08:33)
[2020-07-01] MEDS: PIPERACILLIN/TAZOBACTAM 3,375 MG in SODIUM CHLORIDE 0.9% 100 ML IV SCH (02:31)
[2020-07-01 05:37] LABS: Eosinophils % 0.1 % (0.00-10.9); Hemoglobin 12.2 GM/DL (14.0-18.0); Immature Granulocytes % 0.4 %; Immature Granulocytes Absolute 0.04 #; Lymphocytes # 0.3 10*3/uL (1.4-4.0); Lymphocytes % 3.3 % (21.2-54.2); Mean Corpuscular HGB Conc 31.3 GM/DL (32-36); Mean Corpuscular Volume 90.7 FL (87-102); Mean Platelet Volume 9.9 FL (9.6-12.0); Monocytes % 7.1 % (1.7-12.7); Neutrophils % 89.1 % (38.7-73.9); Platelet Count 189 T/CUMM (130-400); Red Cell Distribution Width 16.5 % (9.3-17.3); White Blood Count 9.7 T/CUMM (4-12)
[2020-07-01 06:01] LABS: Hypochromasia 1+; Lymphocytes 2 % (20-55); Microcytosis 1+; Platelet Estimate Adequate; Segmented Neutrophils 88 % (50-85); Total Cells Counted 100
[2020-07-01 06:04] LABS: Calcium 8.9 MG/DL (8.5-10.1); Osmolality,Calculated 309.6 MOS/KG (273-304); Potassium 3.3 MMOL/L (3.5-5.1)
[2020-07-01] MEDS ORDERED: POTASSIUM CHLORIDE 20 MEQ TABLET PO ONE (07:36)
[2020-07-01] MEDS: DEXT 5% NACL 0.45% KCL 10 MEQ 10 MEQ/1,000 ML BAG IV SCH (08:30)
[2020-07-01] MEDS: NICOTINE 21 MG/24 HR PATCH TRANSDERM SCH (08:32)
[2020-07-01] MEDS: predniSONE 20 MG TABLET PO SCH (08:33)
[2020-07-01] MEDS: QUEtiapine 25 MG TABLET PO SCH ×2 (08:33→20:28)
[2020-07-01] MEDS: MIDODRINE 5 MG TABLET PO SCH ×3 (08:33→20:27)
[2020-07-01] MEDS: ENOXAPARIN 40 MG/0.4 ML SYRINGE SUBCUT SCH (08:33)
[2020-07-01] MEDS: PANTOPRAZOLE 40 MG VIAL IV SCH ×2 (08:34→20:26)
[2020-07-01] MEDS: CARBIDOPA/LEVODOPA 25-100 MG TABLET PO SCH ×2 (08:34→20:28)
[2020-07-01] MEDS: DESITIN 4OZ/NYSTATIN 15 GRAM MIXTURE PASTE TOP SCH ×2 (08:34→20:28)
[2020-07-02] MEDS: ALBUTEROL/IPRATROPIUM 3 ML NEB RESP TX SCH ×4 (00:53→10:30)
[2020-07-02 06:14] LABS: Basophils % 0.1 % (0.0-0.8); Hematocrit 37.8 VOL% (42.0-52.0); Hemoglobin 11.5 GM/DL (14.0-18.0); Immature Granulocytes % 0.5 %; Immature Granulocytes Absolute 0.05 #; Lymphocytes # 0.2 10*3/uL (1.4-4.0); Lymphocytes % 2.4 % (21.2-54.2); Mean Corpuscular HGB Conc 30.4 GM/DL (32-36); Mean Corpuscular Volume 93.6 FL (87-102); Mean Platelet Volume 10.3 FL (9.6-12.0); Monocytes % 5.4 % (1.7-12.7); Neutrophils % 91.6 % (38.7-73.9); Platelet Count 194 T/CUMM (130-400); Red Blood Count 4.04 MC/CUMM (3.8-5.5); Red Cell Distribution Width 16.7 % (9.3-17.3); White Blood Count 9.5 T/CUMM (4-12)
[2020-07-02 06:22] LABS: Calcium 8.3 MG/DL (8.5-10.1); Osmolality,Calculated 304.9 MOS/KG (273-304); Potassium 3.4 MMOL/L (3.5-5.1)
[2020-07-02] MEDS: BUDESONIDE 0.5 MG/2 ML NEB RESP TX SCH (07:10)
[2020-07-02] MEDS: PANTOPRAZOLE 40 MG VIAL IV SCH (08:59)
[2020-07-02] MEDS: NICOTINE 21 MG/24 HR PATCH TRANSDERM SCH (08:59)
[2020-07-02] MEDS: ENOXAPARIN 40 MG/0.4 ML SYRINGE SUBCUT SCH (08:59)
[2020-07-02] MEDS: QUEtiapine 25 MG TABLET PO SCH (08:59)
[2020-07-02] MEDS ORDERED: POTASSIUM CHLORIDE 20 MEQ TABLET PO ONE (09:00)
[2020-07-02] MEDS: DESITIN 4OZ/NYSTATIN 15 GRAM MIXTURE PASTE TOP SCH (09:00)
[2020-07-02] MEDS: predniSONE 20 MG TABLET PO SCH (09:00)
[2020-07-02] MEDS: MIDODRINE 5 MG TABLET PO SCH (09:00)
[2020-07-02] MEDS: CARBIDOPA/LEVODOPA 25-100 MG TABLET PO SCH (09:04)
[2020-07-02 10:05] LABS: Band Neutrophils 2 % (0-10); Lymphocytes 2 % (20-55); Platelet Estimate Normal; Segmented Neutrophils 90 % (50-85); Total Cells Counted 100
[2020-07-02] MEDS ORDERED: CEFUROXIME 500 MG TABLET PO SCH (10:30)
[2020-07-02 11:56] VITALS: BP 121/63
[2020-07-02] MEDS ORDERED: AZITHROMYCIN 250 MG TABLET PO SCH (12:00)
[2020-07-02] MEDS ORDERED: AMOXICILLIN/CLAV 875 MG TABLET PO SCH (12:00)
[2020-07-02] MEDS: DEXT 5% NACL 0.45% KCL 10 MEQ 10 MEQ/1,000 ML BAG IV SCH (12:43)
== END 2020-07-02 14:35 | disposition swing bed (61) | DRG 177 ==
LOC: SUATTDRO 23:18 → N.CC 23:18 → N.5E 06-22 16:55
PROVIDERS: ADMIT Internal Medicine; ATTEND Internal Medicine